=== PATIENT | female | born 1965 | race Two or more races ===

== ENCOUNTER 2023-02-08 00:16 | Emergency (ER) | payer MEDICAID, OTHER ==
[~2023-02-08] VITALS: Ht 157.5 cm; Wt 140.0 kg
[2023-02-08 00:16] VITALS: BP 143/67; RESP 16; O2SAT 98
[2023-02-08] MEDS ORDERED: MAGNESIUM SULF SDV 50% 4MEQ/ML-2 ML VIAL IV ONE (00:17)
[2023-02-08] MEDS ORDERED: CALCIUM CHLOR(10%) 100MG/ML 10ML SYRINGE IV ONE (00:17)
[2023-02-08] MEDS ORDERED: SODIUM BICARB 8.4% 50Meq/50ml SYR INJ IV ONE (00:17)
[2023-02-08] MEDS ORDERED: EPINEPHrine HCL 1 MG/10 ML SYRG IV ONE (00:17)
[2023-02-08 00:19] VITALS: PULSE 82
[2023-02-08 01:36] LABS: Basophils # (auto) 0 10 ^3/uL (0-0.2); Eosinophils # (auto) 0 10 ^3/uL (0-0.8); Hematocrit 16.7 % (36.0-46.0); Lymphocytes # (auto) 1.7 10 ^3/uL (0.4-5.4); Monocytes # (auto) 0.4 10 ^3/uL (0-1.3); Neutrophils # (auto) 10.6 10 ^3/uL (1.6-8.6); White Blood Cell 12.8 10^3/uL (4.4-10.8)
[2023-02-08 01:37] LABS: Basophils % (auto) 0.3 % (0.0-2.0); Eosinophils % (auto) 0.1 % (0.0-7.0); Lymphocytes % (auto) 13.3 % (10.0-50.0); Mean Corpuscular Hemoglobin 30.4 pg (28.0-32.0); Mean Corpuscular Hgb Conc. 27.3 g/dL (32.0-36.0); Mean Corpuscular Volume 111.4 fL (80.0-100.0); Neutrophils % (auto) 83.3 % (37.0-80.0); Nucleated Red Blood Cells % 0.5 %; Red Cell Distribution Width 19.5 % (11.8-14.3)
[2023-02-08 01:46] LABS: Hemoglobin 4.6 g/dL (12.2-16.2)
[2023-02-08 01:51] LABS: INR 1.53 (0.9-1.15); Partial Thromboplastin Time 24.7 SEC (24.5-34.5); Prothrombin Time 15.6 sec (9.3-11.8)
[2023-02-08 01:54] LABS: Alanine Aminotransferase 17 U/L (7-40); Albumin 3.6 g/dL (3.2-4.8); Alkaline Phosphatase 128 U/L (46-116); Aspartate Aminotransferase 72 U/L (13-40); Blood Alcohol < 3.0 mg/dL (<10); Calcium 8.9 mg/dL (8.7-10.4); Chloride 93 mmol/L (98-107); Glucose 161 mg/dL (74-106); Magnesium 3.4 mg/dL (1.6-2.6); Sodium 138 mmol/L (136-145)
[2023-02-08 01:55] LABS: Bilirubin, Total 0.3 mg/dL (0.2-1.0); Total Protein 6.2 g/dL (5.7-8.2)
[2023-02-08 02:00] LABS: Potassium 5.6 mmol/L (3.5-5.1)
[2023-02-08 02:02] LABS: BUN/Creatinine Ratio 28.2 (10.0-20.0)
[2023-02-08 02:08] LABS: Anion Gap 35.00001 (5-15); Blood Urea Nitrogen 157 mg/dL (9-23); Carbon Dioxide < 10 mmol/L (20-30); Lactic Acid w/Reflex 20.6 mmol/L (0.4-2.0)
[2023-02-08] MEDS ORDERED: DEXTROSE (50%) 50ML SYRG IV ONE (02:15)
[2023-02-08] MEDS ORDERED: InsuLIN REG 1unit/0.01ml Soln (100units/ml) IV ONE (02:15)
[2023-02-08] MEDS ORDERED: SODIUM BICARB 8.4% 50Meq/50ml SYR Vial IV ONE (02:15)
[2023-02-08] MEDS ORDERED: EPINEPHrine HCL 1 MG/10 ML SYRG ONE (02:26)
== END 2023-02-08 02:24 ==
LOC: ER 00:16 → EDBD 00:16 → ER 02:24
DX: I46.9 Cardiac arrest, cause unspecified (principal); R41.82 Altered mental status, unspecified; D64.9 Anemia, unspecified; E87.5 Hyperkalemia; R79.89 Other specified abnormal findings of blood chemistry; K92.2 Gastrointestinal hemorrhage, unspecified; N18.6 End stage renal disease; E87.20 Acidosis, unspecified; E87.8 Other disorders of electrolyte and fluid balance, not elsewhere classified; R06.89 Other abnormalities of breathing
CPT/HCPCS: 31500; 36415; 36430; 70450; 71045; 80053; 80320; 83605; 83735; 84484; 85025; 85610; 85730; 86920; 87040; 92950; 99291; J0171; J1815; J3475; P9016